=== PATIENT | female | born 1955 ===

== ENCOUNTER 2018-06-08 09:24 | Emergency (ER) | payer OTHER ==
--- NOTE | 2018-06-08 09:47 | C.PDOC ---
History Of Present Illness Patient reports itchy rash to face for the past 3 days which occurred after she dyed her hair. Denies any respiratory complaints. No difficulty swallowing. No change in voice. She took benadryl and acetaminophen last night with little relief. Time Seen by Provider: 06/08/18 09:32 Chief Complaint (Nursing): Abnormal Skin Integrity Past Medical History Reviewed: Historical Data, Nursing Documentation, Vital Signs Vital Signs: Last Vital Signs Temp 98.5 F 06/08/18 09:27 Pulse 80 06/08/18 09:27 Resp 18 06/08/18 09:27 BP 144/65 06/08/18 09:27 Pulse Ox 98 06/08/18 09:27 Family History: States: Unknown Family Hx - Social History Hx Alcohol Use: No Hx Substance Use: No - Immunization History Hx Tetanus Toxoid Vaccination: No Hx Influenza Vaccination: No Hx Pneumococcal Vaccination: No Review Of Systems Except As Marked, All Systems Reviewed And Found Negative. Constitutional: Negative for: Fever, Chills Eyes: Negative for: Pain, Conjunctivae Inflammation ENT: Negative for: Mouth Swelling, Throat Pain, Throat Swelling Cardiovascular: Negative for: Chest Pain Respiratory: Negative for: Cough, Shortness of Breath, Wheezing Gastrointestinal: Negative for: Nausea, Vomiting, Abdominal Pain, Diarrhea Skin: Positive for: Rash Neurological: Negative for: Altered Mental Status Physical Exam - Physical Exam Appears: Well, Non-toxic, No Acute Distress Skin: Normal Color, Rash (erythematous, slightly scaly rash to hairline on the right side, and on posterior neck) Eye(s): bilateral: Normal Inspection Oral Mucosa: Moist Tongue: Normal Appearing Lips: Normal Appearing Throat: Normal Chest: Symmetrical Cardiovascular: Rhythm Regular Respiratory: Normal Breath Sounds, No Stridor, No Wheezing Gastrointestinal/Abdominal: Normal Exam Neurological/Psych: Oriented x3 Gait: Steady ED Course And Treatment O2 Sat by Pulse Oximetry: 98 Medical Decision Making Medical Decision Making: Rx written for short course of PO steroids. Advised avoiding putting steroid cream on face. Disposition - Disposition Disposition: HOME/ ROUTINE Disposition Time: 09:48 Condition: STABLE Additional Instructions: HAILEY NGUYEN, thank you for letting us take care of you today. Your provider was Vilma Rousseau MD and you were treated for SWOLLEN RT SIDE OF FACE. The emergency medical care you received today was directed at your acute symptoms. If you were prescribed any medication, please fill it and take as directed. It may take several days for your symptoms to resolve. Return to the Emergency Department if your symptoms worsen, do not improve, or if you have any other problems. Please contact your doctor or call one of the physicians/clinics you have been referred to that are listed on the Patient Visit Information form that is included in your discharge packet. Bring any paperwork you were given at discharge with you along with any medications you are taking to your follow up visit. Our treatment cannot replace ongoing medical care by a primary care pro vider outside of the emergency department. Thank you for allowing the [facility] team to be part of your care today. If you had an X-Ray or CT scan: A Radiologist will review the ED reading if any change in treatment is needed we will contact you. If you had a blood, urine, or wound culture: It will take several days for the results, if any change in treatment is needed we will contact you. If you had an STI test: It will take 48 hours for the results. Please call after 1 week if you have not heard back. Prescriptions: Prednisone [Deltasone] 20 mg PO DAILY #5 tablet Instructions: Contact Dermatitis (DC) Forms: [facility] ([place]ovan), Gen Discharge Inst [place]ovan - Clinical Impression Clinical Impression: Allergic contact dermatitis
[2018-06-08 12:52] VITALS: BP 144/65; PULSE 80; RESP 18; TEMP 98.5; O2SAT 98
== END 2018-06-08 10:18 | disposition home or self-care (01) ==
LOC: C.ER 09:24
DX: L23.9 Allergic contact dermatitis, unspecified cause (principal)